=== PATIENT | male | born 1970 | race Caucasian/White ===

== ENCOUNTER 2018-05-09 22:19 | Emergency (ER) | payer OTHER, BC ==
[~2018-05-09] VITALS: Ht 172.7 cm; Wt 83.9 kg
[~2018-05-09 22:19] MED LIST: ALBU90OI INH; AMOX500 PO; CETI10 PO; CYCL10 PO; HYDACE5 PO; IBUP200; IBUP800 PO; PRED20 PO
[2018-05-09] MEDS ORDERED: Omeprazole20 M1 PO (22:27)
[2018-05-09] MEDS ORDERED: IBUP600 PO (23:24)
[2018-05-09] MEDS ORDERED: CYCL10 PO (23:24)
[2018-05-09] MEDS ORDERED: Norco 5-325 Ta1 EACH PO (23:35)
== END 2018-05-10 00:21 | disposition home or self-care (01) ==
LOC: ER 22:19
DX: S22.42XA Multiple fractures of ribs, left side, initial encounter for closed fracture (principal); Z87.891 Personal history of nicotine dependence; Z79.899 Other long term (current) drug therapy; W10.9XXA Fall (on) (from) unspecified stairs and steps, initial encounter
CPT/HCPCS: 71045; 72070; 96372; 99283-25; J1885; J3010

== ENCOUNTER → 2018-08-13 | Outpatient (CLI) | payer BC ==
[~2018-08-13] MED LIST changes: +IBUP600 PO; +Norco 5-325 Ta1 EACH PO; +Omeprazole20 M1 PO
[2018-08-13 16:40] LABS: BASOPHILS ABSOLUTE AUTO 0.06 K/mm3 (0.00-0.23); BASOPHILS PERCENT AUTO 1 % (0-2); EOSINOPHILS ABSOLUTE AUTO 0.23 K/mm3 (0.00-0.68); EOSINOPHILS PERCENT AUTO 3 % (0-6); Hematocrit 42.3 % (37.0-53.0); IMMATURE GRAN ABSOLUTE AUTO 0.04 K/mm3 (0.00-0.10); IMMATURE GRAN PERCENT AUTO 0 % (0-1); LYMPHOCYTES PERCENT AUTO 24 % (21-46); MONOCYTES ABSOLUTE AUTO 0.64 K/mm3 (0.16-1.47); MONOCYTES PERCENT AUTO 7 % (4-13); Mean Corpuscular HGB 30.5 pg (26.0-34.0); Mean Corpuscular HGB Conc 33.1 g/dL (31.5-36.5); Mean Corpuscular Volume 92 fL (80-100); Mean Platelet Volume 8.9 fL (9.1-12.4); NEUTROPHILS ABSOLUTE AUTO 5.91 K/mm3 (1.96-9.15); NEUTROPHILS PERCENT AUTO 65 % (41-73); Platelet Count 376 K/mm3 (150-400); RDW Coefficient Variation 12.8 % (11.7-14.2); Red Blood Cell Count 4.59 M/mm3 (4.30-5.90); White Blood Cell Count 9.08 K/mm3 (4.00-11.30)
[2018-08-13 16:55] LABS: Alanine Aminotransfer (ALT/SGP 43 U/L (12-78); Albumin, Blood 3.7 g/dL (3.4-5.0); Albumin/Globulin Ratio 0.8 (0.8-1.8); Alk Phos 99 U/L (40-126); Anion Gap 7 mmol/L (6-16); Aspartate Aminotrans (AST/SGOT 23 U/L (12-37); Bilirubin, Total 0.4 mg/dL (0.1-1.0); Blood Urea Nitrogen 16 mg/dL (8-24); CHOL/HDL RATIO 3.4; CO2, Blood 31 mmol/L (21-32); Calcium, Blood 8.7 mg/dL (8.5-10.1); Chloride, Blood 104 mmol/L (98-108); Cholesterol 187 mg/dL (50-200); Creatinine, Blood 0.84 mg/dL (0.60-1.20); Globulin, Blood 4.4 g/dL (2.2-4.0); Glomerular Filtration Rate >60 (60-); Glucose, Blood 89 mg/dL (70-99); HDL Cholesterol 55 mg/dL (>39); LDL/HDL RATIO 2.2; Low Density Lipoprotein Chol 122 mg/dL (<110); Potassium, Blood 4.5 mmol/L (3.5-5.5); Sodium, Blood 142 mmol/L (136-145); Total Protein, Blood 8.1 g/dL (6.4-8.2); Triglycerides 48 mg/dL (30-160); Very Low Density Lipoprot Chol 9 mg/dL (6-32)
== END | disposition home or self-care (01) ==
LOC: LAB SHORT 16:30 → LAB EV 16:30
PROVIDERS: Physician Assistant
DX: Z13.220 Encounter for screening for lipoid disorders (principal); E66.3 Overweight; Z68.28 Body mass index [BMI] 28.0-28.9, adult
CPT/HCPCS: 80053; 80061; 85025

== ENCOUNTER → 2019-06-24 | Outpatient (CLI) | payer BC ==
[2019-06-24 17:21] LABS: BASOPHILS ABSOLUTE AUTO 0.03 K/mm3 (0.00-0.23); BASOPHILS PERCENT AUTO 0 % (0-2); EOSINOPHILS ABSOLUTE AUTO 0.13 K/mm3 (0.00-0.68); EOSINOPHILS PERCENT AUTO 2 % (0-6); Hematocrit 43.3 % (37.0-53.0); Hemoglobin 14.8 g/dL (13.5-17.5); IMMATURE GRAN ABSOLUTE AUTO 0.03 K/mm3 (0.00-0.10); IMMATURE GRAN PERCENT AUTO 0 % (0-1); LYMPHOCYTES ABSOLUTE AUTO 1.73 K/mm3 (0.84-5.20); LYMPHOCYTES PERCENT AUTO 21 % (21-46); MONOCYTES ABSOLUTE AUTO 0.77 K/mm3 (0.16-1.47); MONOCYTES PERCENT AUTO 9 % (4-13); Mean Corpuscular HGB 31.4 pg (26.0-34.0); Mean Corpuscular HGB Conc 34.2 g/dL (31.5-36.5); Mean Corpuscular Volume 92 fL (80-100); Mean Platelet Volume 9.7 fL (9.1-12.4); NEUTROPHILS ABSOLUTE AUTO 5.56 K/mm3 (1.96-9.15); NEUTROPHILS PERCENT AUTO 67 % (41-73); Platelet Count 320 K/mm3 (150-400); RDW Coefficient Variation 12.3 % (11.7-14.2); RDW Standard Deviation 41.1 fL (35.1-46.3); Red Blood Cell Count 4.72 M/mm3 (4.30-5.90); White Blood Cell Count 8.25 K/mm3 (4.00-11.30)
[2019-06-24 17:38] LABS: Anion Gap 10 mmol/L (6-16); Blood Urea Nitrogen 16 mg/dL (8-24); Bun/Creatinine Ratio 21.9 (12.0-20.0); CO2, Blood 26 mmol/L (21-32); Calcium, Blood 8.8 mg/dL (8.5-10.1); Chloride, Blood 103 mmol/L (98-108); Creatinine, Blood 0.73 mg/dL (0.60-1.20); Glomerular Filtration Rate >60 (60-); Glucose, Blood 95 mg/dL (70-99); Potassium, Blood 3.9 mmol/L (3.5-5.5); Sodium, Blood 139 mmol/L (136-145); Thyroid Stimulating Hormone 0.996 uIU/mL (0.360-4.800)
== END | disposition home or self-care (01) ==
LOC: LAB EV 17:16 → LAB SHORT 17:16
PROVIDERS: Physician Assistant Surgical
DX: R53.83 Other fatigue (principal)
CPT/HCPCS: 80048; 84443; 85025

== ENCOUNTER 2022-08-26 16:40 | Emergency (ER) | payer BC ==
[~2022-08-26] VITALS: Ht 175.3 cm; Wt 83.9 kg
[2022-08-26] MEDS ORDERED: MELO7.5 PO (17:14)
[2022-08-26] MEDS ORDERED: METOPROLOL SUCC25 MG PO (17:14)
[2022-08-26 17:30] VITALS: BP 123/91
[2022-08-26 17:44] LABS: BASOPHILS ABSOLUTE AUTO 0.05 K/mm3 (0.00-0.23); BASOPHILS PERCENT AUTO 1 % (0-2); EOSINOPHILS ABSOLUTE AUTO 0.25 K/mm3 (0.00-0.68); EOSINOPHILS PERCENT AUTO 4 % (0-6); Hematocrit 43.1 % (37.0-53.0); Hemoglobin 14.9 g/dL (13.5-17.5); IMMATURE GRAN ABSOLUTE AUTO 0.02 K/mm3 (0.00-0.10); IMMATURE GRAN PERCENT AUTO 0 % (0-1); LYMPHOCYTES ABSOLUTE AUTO 1.49 K/mm3 (0.84-5.20); LYMPHOCYTES PERCENT AUTO 24 % (21-46); MONOCYTES PERCENT AUTO 10 % (4-13); Mean Corpuscular HGB 32.2 pg (26.0-34.0); Mean Corpuscular HGB Conc 34.6 g/dL (31.5-36.5); Mean Corpuscular Volume 93 fL (80-100); Mean Platelet Volume 9.8 fL (9.1-12.4); NEUTROPHILS ABSOLUTE AUTO 3.87 K/mm3 (1.96-9.15); NEUTROPHILS PERCENT AUTO 62 % (41-73); Platelet Count 303 K/mm3 (150-400); RDW Coefficient Variation 12.1 % (11.7-14.2); RDW Standard Deviation 41.6 fL (35.1-46.3); Red Blood Cell Count 4.63 M/mm3 (4.30-5.90); White Blood Cell Count 6.28 K/mm3 (4.00-11.30)
[2022-08-26 17:51] LABS: Albumin/Globulin Ratio 1.1 (0.8-1.8); Bilirubin, Total 0.6 mg/dL (0.1-1.0); Bun/Creatinine Ratio 27.9 (12.0-20.0); Calcium, Blood 9.4 mg/dL (8.5-10.1); Creatinine, Blood 0.68 mg/dL (0.60-1.20); Globulin, Blood 3.7 g/dL (2.2-4.0); Potassium, Blood 3.9 mmol/L (3.5-5.5); Total Protein, Blood 7.7 g/dL (6.4-8.2)
== END 2022-08-26 18:13 | disposition home or self-care (01) ==
LOC: ER 16:40
PROVIDERS: Student in an Organized Health Care Education/Training Program
DX: R00.2 Palpitations (principal); R55 Syncope and collapse; Z79.899 Other long term (current) drug therapy; G47.30 Sleep apnea, unspecified; Z87.891 Personal history of nicotine dependence
CPT/HCPCS: 80053; 83735; 85025; 93005; 93010

== ENCOUNTER 2022-12-31 12:21 | Day surgery (SDC) | payer BC ==
[~2022-12-31] VITALS: Ht 172.7 cm; Wt 80.7 kg
[~2022-12-31 12:21] MED LIST changes: +MELO7.5 PO; +METOPROLOL SUCC25 MG PO
[2022-12-31] MEDS ORDERED: ESOM20 PO (13:20)
[2022-12-31 14:47] VITALS: BP 112/82
== END 2022-12-31 14:45 | disposition home or self-care (01) ==
LOC: ORSCSDS 12:21
PROVIDERS: Surgery
PROC: 0DBL8ZX Excision of Transverse Colon, Via Natural or Artificial Opening Endoscopic, Diagnostic (ICD-10-PCS; principal; 2022-12-31 13:45)
DX: Z12.11 Encounter for screening for malignant neoplasm of colon (principal); G47.33 Obstructive sleep apnea (adult) (pediatric); K63.5 Polyp of colon; K57.30 Diverticulosis of large intestine without perforation or abscess without bleeding; I10 Essential (primary) hypertension; M19.90 Unspecified osteoarthritis, unspecified site; K21.9 Gastro-esophageal reflux disease without esophagitis; Z87.891 Personal history of nicotine dependence; Z79.899 Other long term (current) drug therapy
CPT/HCPCS: 88305; J2704; J7120

== ENCOUNTER 2024-10-24 18:32 | Emergency (ER) | payer OTHER, BC ==
[~2024-10-24] VITALS: Ht 172.7 cm; Wt 83.9 kg
[~2024-10-24 18:32] MED LIST changes: +ESOM20 PO
[2024-10-24 18:38] VITALS: BP 114/92
[2024-10-24] MEDS ORDERED: IBUP600 PO (19:41)
[2024-10-24] MEDS ORDERED: ACET500 PO (19:41)
== END 2024-10-24 19:53 | disposition home or self-care (01) ==
LOC: ER 18:32
DX: S62.512A Displaced fracture of proximal phalanx of left thumb, initial encounter for closed fracture (principal); M19.90 Unspecified osteoarthritis, unspecified site; Z87.891 Personal history of nicotine dependence; Z79.1 Long term (current) use of non-steroidal anti-inflammatories (NSAID); Z79.899 Other long term (current) drug therapy; W19.XXXA Unspecified fall, initial encounter
CPT/HCPCS: 73140; A9270

== ENCOUNTER 2024-11-01 10:26 | Day surgery (SDC) | payer OTHER, BC ==
[~2024-11-01 10:26] MED LIST changes: +ACET500 PO; +Lidocaine HCl 2% 10 ML SDA ONE
[2024-11-01] MEDS ORDERED: CeFAZolin Sodium 2,000 MG VIAL ONE (10:42)
--- NOTE | 2024-11-01 11:16 | NUR ---
11/01/24 1116 FENG AKHTAR MD CND CASE D/T ROOM DELAY-MD TALKED TO PT CONSULT ROOM @ 11:12. PT WAS DC @ 0082. END NOTE RDS
== END 2024-11-01 11:05 | disposition home or self-care (01) ==
LOC: ORSCSDS 10:26
DX: S62.512A Displaced fracture of proximal phalanx of left thumb, initial encounter for closed fracture (principal); Z53.9 Procedure and treatment not carried out, unspecified reason
CPT/HCPCS: J0690; J2003; J7120

== ENCOUNTER 2024-11-06 09:06 | Day surgery (SDC) | payer OTHER, BC ==
[~2024-11-06] VITALS: Ht 172.7 cm; Wt 82.7 kg
[~2024-11-06 09:06] MED LIST changes: -Lidocaine HCl 2% 10 ML SDA ONE
[2024-11-06] MEDS ORDERED: CeFAZolin Sodium 2,000 MG VIAL ONE (09:33)
--- NOTE | 2024-11-06 09:59 | NUR ---
11/06/24 0959 Tayler Larsen PT REPORTS HE WAS HAVING SEVERE SORE THROAT AND DIFFICULTY TALKING DUE TO THROAT PAIN, CHEST TIGHTNESS, PRODUCTIVE COUGH. WENT TO URGENT CARE LAST Wednesday11/02/24 AND WAS GIVEN 3 DAY COURSE OF PREDNISONE TO REDUCE INFLAMMATION. TOOK LAST DOSE OF PREDNISONE 11/04/24. PT REPORTS HAS AN OCCASIONAL COUGH PRODUCTIVE OF YELLOW SPUTUM BUT OTHERWISE FEELING MUCH BETTER AND ALL OTHER SYMPTOMS HAVE RESOLVED. DENIES CHEST TIGHTNESS, PRESSURE, HEAVINESS TODAY.
[2024-11-06] MEDS ORDERED: FentaNYL Citrate 50 MCG/ML 2 ML Injection ONE (10:06)
[2024-11-06] MEDS ORDERED: Lidocaine HCl 2% 10 ML SDA INJ ONE (10:23)
[2024-11-06] MEDS ORDERED: Sugammadex Sodium 200 MG/2ML SDV (100 MG/ML) ONE (10:25)
[2024-11-06 11:21] VITALS: BP 125/86
--- NOTE | 2024-11-06 11:36 | NUR ---
11/06/[address] AT BEDSIDE
== END 2024-11-06 12:05 | disposition home or self-care (01) ==
LOC: ORSCSDS 09:06
PROVIDERS: Orthopaedic Surgery
PROC: 0PSR04Z Reposition Right Thumb Phalanx with Internal Fixation Device, Open Approach (ICD-10-PCS; principal; 2024-11-06 13:30)
DX: S62.512A Displaced fracture of proximal phalanx of left thumb, initial encounter for closed fracture (principal); G47.33 Obstructive sleep apnea (adult) (pediatric); K21.9 Gastro-esophageal reflux disease without esophagitis; Z79.899 Other long term (current) drug therapy
CPT/HCPCS: J0690; J2003; J2704; J3010; J7120

== ENCOUNTER 2024-11-08 17:24 | Emergency (ER) | payer OTHER, BC ==
[~2024-11-08] VITALS: Ht 172.7 cm; Wt 86.2 kg
[~2024-11-08 17:24] MED LIST changes: -AMOCLA875 PO; -DICY20 PO; -ONDA4 PO; -OXAYDO5 M1 PO
[2024-11-08] MEDS ORDERED: Morphine Sulfate 4 MG/1 ML Injection IV ONE ×2 (17:45→20:40)
[2024-11-08] MEDS ORDERED: Ondansetron HCl 2 MG / ML 2ML Vial IV ONE ×2 (17:45→20:40)
[2024-11-08] MEDS ORDERED: NS 1,000 ML IV SCH (17:45)
[2024-11-08] MEDS ORDERED: DICY20 PO (20:25)
[2024-11-08] MEDS ORDERED: ONDA4 PO (20:25)
[2024-11-08 21:14] VITALS: BP 137/92
[2024-11-09] MEDS ORDERED: AMOCLA875 PO (09:24)
[2024-11-09] MEDS ORDERED: OXAYDO5 M1 PO (09:25)
== END 2024-11-08 21:15 | disposition home or self-care (01) ==
LOC: ER 17:24
DX: R10.13 Epigastric pain (principal); G47.30 Sleep apnea, unspecified; Z87.891 Personal history of nicotine dependence; Z90.49 Acquired absence of other specified parts of digestive tract; Z79.1 Long term (current) use of non-steroidal anti-inflammatories (NSAID); Z79.899 Other long term (current) drug therapy
CPT/HCPCS: 74177; 93005; 93010; 96374-59; 96375; 99284-25; J2270; J2405; J7030; Q9967

== ENCOUNTER → 2024-11-08 | Outpatient (CLI) | payer BC ==
[~2024-11-08] MED LIST changes: +AMOCLA875 PO; +DICY20 PO; +ONDA4 PO; +OXAYDO5 M1 PO
[2024-11-08 16:37] LABS: BASOPHILS ABSOLUTE AUTO 0.05 K/mm3 (0.00-0.23); BASOPHILS PERCENT AUTO 0 % (0-2); EOSINOPHILS ABSOLUTE AUTO 0.25 K/mm3 (0.00-0.68); EOSINOPHILS PERCENT AUTO 2 % (0-6); Hematocrit 42.0 % (37.0-53.0); Hemoglobin 14.2 g/dL (13.5-17.5); IMMATURE GRAN ABSOLUTE AUTO 0.09 K/mm3 (0.00-0.10); IMMATURE GRAN PERCENT AUTO 1 % (0-1); LYMPHOCYTES ABSOLUTE AUTO 1.87 K/mm3 (0.84-5.20); LYMPHOCYTES PERCENT AUTO 16 % (21-46); MONOCYTES ABSOLUTE AUTO 0.99 K/mm3 (0.16-1.47); MONOCYTES PERCENT AUTO 8 % (4-13); Mean Corpuscular HGB Conc 33.8 g/dL (31.5-36.5); Mean Corpuscular Volume 92 fL (80-100); NEUTROPHILS ABSOLUTE AUTO 8.81 K/mm3 (1.96-9.15); NEUTROPHILS PERCENT AUTO 73 % (41-73); NRBC ABSOLUTE 0.00 K/mm3 (0.00-0.02); NRBC Auto 0.0 /100 WBC (0.0-0.2); Platelet Count 319 K/mm3 (150-400); RDW Coefficient Variation 12.0 % (11.7-14.2); RDW Standard Deviation 40.9 fL (35.1-46.3)
[2024-11-08 16:47] LABS: Alanine Aminotransfer (ALT/SGP 31.0 U/L (12-78); Albumin, Blood 3.7 g/dL (3.4-5.0); Albumin/Globulin Ratio 0.9 (0.8-1.8); Anion Gap 10.0 mmol/L (6-16); Aspartate Aminotrans (AST/SGOT 14.0 U/L (12-37); Bilirubin, Total 0.4 mg/dL (0.1-1.0); Blood Urea Nitrogen 17.0 mg/dL (8-24); CO2, Blood 31.0 mmol/L (21-32); Calcium, Blood 9.1 mg/dL (8.5-10.1); Chloride, Blood 102.0 mmol/L (98-108); Creatinine, Blood 0.83 mg/dL (0.60-1.20); Globulin, Blood 3.9 g/dL (2.2-4.0); Glucose, Blood 92.0 mg/dL (70-99); Potassium, Blood 4.0 mmol/L (3.5-5.5); Sodium, Blood 139.0 mmol/L (136-145); Total Protein, Blood 7.6 g/dL (6.4-8.2)
== END | disposition home or self-care (01) ==
LOC: LAB SHORT 16:32 → LAB 16:32
PROVIDERS: Physician Assistant
DX: R10.9 Unspecified abdominal pain (principal)
CPT/HCPCS: 80053; 83690; 85025

== ENCOUNTER 2024-11-09 07:45 | Emergency (ER) | payer OTHER, BC ==
[~2024-11-09] VITALS: Ht 172.7 cm; Wt 86.2 kg
[~2024-11-09 07:45] MED LIST changes: +DICY20 PO; +ONDA4 PO
[2024-11-09] MEDS ORDERED: FentaNYL Citrate 50 MCG/ML 2 ML Injection IV ONE (08:20)
[2024-11-09] MEDS ORDERED: NS 1,000 ML IV SCH (08:20)
[2024-11-09 08:24] LABS: BASOPHILS ABSOLUTE AUTO 0.06 K/mm3 (0.00-0.23); BASOPHILS PERCENT AUTO 0 % (0-2); EOSINOPHILS ABSOLUTE AUTO 0.29 K/mm3 (0.00-0.68); EOSINOPHILS PERCENT AUTO 2 % (0-6); Hematocrit 42.1 % (37.0-53.0); Hemoglobin 14.6 g/dL (13.5-17.5); IMMATURE GRAN ABSOLUTE AUTO 0.08 K/mm3 (0.00-0.10); IMMATURE GRAN PERCENT AUTO 1 % (0-1); LYMPHOCYTES ABSOLUTE AUTO 1.53 K/mm3 (0.84-5.20); LYMPHOCYTES PERCENT AUTO 10 % (21-46); MONOCYTES ABSOLUTE AUTO 1.35 K/mm3 (0.16-1.47); MONOCYTES PERCENT AUTO 9 % (4-13); Mean Corpuscular HGB Conc 34.7 g/dL (31.5-36.5); Mean Corpuscular Volume 92 fL (80-100); NEUTROPHILS ABSOLUTE AUTO 11.42 K/mm3 (1.96-9.15); NEUTROPHILS PERCENT AUTO 78 % (41-73); NRBC ABSOLUTE 0.00 K/mm3 (0.00-0.02); NRBC Auto 0.0 /100 WBC (0.0-0.2); Platelet Count 324 K/mm3 (150-400); RDW Coefficient Variation 11.9 % (11.7-14.2); RDW Standard Deviation 39.8 fL (35.1-46.3)
[2024-11-09 08:52] LABS: Alanine Aminotransfer (ALT/SGP 27 U/L (12-78); Albumin, Blood 3.3 g/dL (3.4-5.0); Albumin/Globulin Ratio 0.7 (0.8-1.8); Anion Gap 7 mmol/L (3-11); Aspartate Aminotrans (AST/SGOT 16 U/L (12-37); Bilirubin, Total 0.8 mg/dL (0.1-1.0); Blood Urea Nitrogen 9 mg/dL (8-24); CO2, Blood 27 mmol/L (21-32); Calcium, Blood 9.0 mg/dL (8.5-10.1); Chloride, Blood 103 mmol/L (98-108); Creatinine, Blood 0.62 mg/dL (0.60-1.20); Globulin, Blood 4.5 g/dL (2.2-4.0); Glucose, Blood 107 mg/dL (70-99); Potassium, Blood 4.0 mmol/L (3.5-5.5); Sodium, Blood 133 mmol/L (136-145); Total Protein, Blood 7.8 g/dL (6.4-8.2)
[2024-11-09] MEDS ORDERED: AMOCLA875 PO (09:24)
[2024-11-09] MEDS ORDERED: OXAYDO5 M1 PO (09:25)
[2024-11-09 09:45] VITALS: BP 141/94
== END 2024-11-09 09:58 | disposition home or self-care (01) ==
LOC: ER 07:45
PROVIDERS: Student in an Organized Health Care Education/Training Program
DX: K57.32 Diverticulitis of large intestine without perforation or abscess without bleeding (principal); N20.0 Calculus of kidney; G47.30 Sleep apnea, unspecified; Z87.891 Personal history of nicotine dependence; Z90.49 Acquired absence of other specified parts of digestive tract; Z79.899 Other long term (current) drug therapy
CPT/HCPCS: 74177; 80053; 83690; 85025; 96361; 96374-59; 99284-25; A9270; J3010; J7030; Q9967